=== PATIENT | male | born 1965 | race Two or more races ===

== ENCOUNTER 2017-11-11 18:00 | Emergency (ER) | payer SELFPAY ==
[~2017-11-11] VITALS: Ht 165.1 cm; Wt 77.6 kg
[2017-11-11 18:22] VITALS: BP 132/84
== END 2017-11-11 20:44 | disposition home or self-care (01) ==
LOC: ER 18:06
DX: B35.0 Tinea barbae and tinea capitis (principal); I10 Essential (primary) hypertension; Z90.49 Acquired absence of other specified parts of digestive tract